=== PATIENT | female | born 1990 | race Caucasian/White ===

== ENCOUNTER 2016-05-08 08:45 | Emergency (ER) | payer OTHER ==
[2016-05-08] MEDS ORDERED: Ondansetron INJ* 2 MG/ML VIAL IV ONE (09:16)
[2016-05-08] MEDS ORDERED: Morphine INJ* 4 MG/ML 1 ML CARPUJECT IV ONE ×2 (09:16→11:40)
[2016-05-08] MEDS ORDERED: NS 0.9% 1000 ML* 2,000 ML IV ONE (09:16)
[2016-05-08 09:40] LABS: Hematocrit 36 % (35-47); Hemoglobin 11.5 g/dl (12.0-16.0); Mean Corpuscular HGB Conc 32 g/dl (31-36); Mean Corpuscular Hemoglobin 27 pg (27-31); Mean Corpuscular Volume 85 fL (80-97); Mean Platelet Volume 8 um3 (7.4-10.4); Red Blood Count 4.21 10^6/ul (4.0-5.4); Red Cell Distribution Width 15 % (10.5-15); White Blood Count 14.8 10^3/ul (3.5-10.8)
--- NOTE | 2016-05-08 10:08 | ED ---
Abdominal Pain/Female - HPI Summary HPI Summary: Patient presents with diffuse abdominal pain that began last night without known cause. The pain is a dull constant with episode of intense pain that subside spontaneously. Her pain is made worse by deep breaths and movement, and made better when her knees are tucked up. She has nausea without vomiting and has had diarrhea vs. loose stool for the past 2 weeks. She denies recent illness , fever, chills, prior abdominal surgeries or food exposure. Her periods are regular and she has a monogamous partner. No vaginal discharge. - History of Current Complaint Chief Complaint: EDAbdPain Stated Complaint: ABD PAIN Time Seen by Provider: 05/08/16 08:58 Hx Obtained From: Patient Hx Last Menstrual Period: July 23, 2015 ?: No Onset/Duration: Gradual Onset Timing: Constant Severity Initially: Moderate Severity Currently: Severe Pain Intensity: 8 Location: Diffuse Radiates: No Character: Sharp, Colicy Aggravating Factor(s): Movement, Deep Breaths Alleviating Factor(s): Other: - bending knees to chest Associated Signs and Symptoms: Positive: Nausea, Diarrhea Allergies/Adverse Reactions: Allergies Allergy/AdvReac Type Severity Reaction Status Date / Time No Known Allergies Allergy Verified 02/04/16 20:43 PMH/Surg Hx/FS Hx/Imm Hx Endocrine/Hematology History: Reports: Hx Thyroid Disease - resolved Denies: Hx Diabetes Cardiovascular History: Denies: Hx Hypertension Respiratory History: Reports: Hx Asthma Denies: Hx Chronic Obstructive Pulmonary Disease (COPD) GI History: Denies: Hx Ulcer - Surgical History Surgery Procedure, Year, and Place: C section 2011 Infectious Disease History: No Infectious Disease History: Denies: Hx Hepatitis, Hx Human Immunodeficiency Virus (HIV), History Other Infectious Disease, Traveled Outside the [place] in Last 30 Days - Family History Known Family History: Positive: None, Cardiac Disease - quadruple bypass surgery - father, Diabetes, Other - thyroid disease - mother Negative: Blood Disorder - pt denies bleeding disorders in family - Social History Occupation: Employed Full-time Lives: With Family Alcohol Use: Occasionally Hx Substance Use: No Substance Use Type: Reports: None Hx Tobacco Use: Yes Smoking Status (MU): Light Every Day Tobacco Smoker Amount Used/How Often: 6-7 cigs Have You Smoked in the Last Year: Yes Cessation Counseling: Patient Advised to Stop Review of Systems Negative: Fever Negative: Chest Pain Negative: Shortness Of Breath Positive: Abdominal Pain, Diarrhea, Nausea. Negative: Vomiting Negative: Headache Psychological: Normal All Other Systems Reviewed And Are Negative: Yes Physical Exam Triage Information Reviewed: Yes Vital Signs On Initial Exam: Initial Vitals Temp Pulse Resp BP Pulse Ox 98.2 F 110 16 105/64 97 05/08/16 08:51 05/08/16 08:51 05/08/16 08:51 05/08/16 08:51 05/08/16 08:51 Vital Signs Reviewed: Yes Appearance: Positive: Well-Appearing, Well-Nourished, Pain Distress Skin: Positive: Warm, Skin Color Reflects Adequate Perfusion, Dry Head/Face: Positive: Normal Head/Face Inspection Eyes: Positive: EOMI, DONATO, Conjunctiva Clear ENT: Positive: Hearing grossly normal Neck: Positive: Supple, Nontender, No Lymphadenopathy Respiratory/Lung Sounds: Positive: Clear to Auscultation, Breath Sounds Present Cardiovascular: Positive: Tachycardia Abdomen Description: Positive: Soft, Guarding. Negative: Nontender - diffuse tenderness to light palpation, CVA Tenderness (R), CVA Tenderness (L) Bowel Sounds: Positive: Present Musculoskeletal: Positive: Strength/ROM Intact. Negative: Edema Left, Edema Right Neurological: Positive: Sensory/Motor Intact, Alert, Oriented to Person Place, Time, NV Bundle Intact Distally Psychiatric: Positive: Affect/Mood Appropriate AVPU Assessment: Alert - [place] Coma Scale Coma Scale Total: 15 Diagnostics - Vital Signs Vital Signs Temp Pulse Resp BP Pulse Ox 05/08/16 09:39 20 05/08/16 09:18 99.9 F 05/08/16 09:07 100 95 05/08/16 09:05 119/68 05/08/16 08:51 98.2 F 110 16 105/64 97 - Laboratory Lab Results: Lab Results 05/08/16 Range/Units 09:25 WBC 14.8 H (3.5-10.8) 10^3/ul RBC 4.21 (4.0-5.4) 10^6/ul Hgb 11.5 L (12.0-16.0) g/dl Hct 36 (35-47) % MCV 85 (80-97) fL MCH 27 (27-31) pg MCHC 32 (31-36) g/dl RDW 15 (10.5-15) % Plt Count 221 (150-450) 10^3/ul MPV 8 (7.4-10.4) um3 Neut % (Auto) 86.7 H (38-83) % Lymph % (Auto) 4.9 L (25-47) % [place] % (Auto) 6.6 (1-9) % Eos % (Auto) 1.4 (0-6) % Baso % (Auto) 0.4 (0-2) % Absolute Neuts (auto) 12.9 H (1.5-7.7) 10^3/ul Absolute Lymphs (auto) 0.7 L (1.0-4.8) 10^3/ul Absolute Monos (auto) 1.0 H (0-0.8) 10^3/ul Absolute Eos (auto) 0.2 (0-0.6) 10^3/ul Absolute Basos (auto) 0.1 (0-0.2) 10^3/ul Absolute Nucleated RBC 0.01 10^3/ul Nucleated RBC % 0.1 Result Diagrams: 05/08/16 09:25 05/08/16 09:25 Lab Statement: Any lab studies that have been ordered have been reviewed, and results considered in the medical decision making process. - CT No standard instances CT Interpretation: Positive (See Comments) CT Interpretation Completed By: Radiologist - colitis Re-Evaluation - Re-Evaluation First Eval Re-Evaluation Time: 10:00 Change: Improved Comment: pain decreased with medication Abdominal Pain Fem Course/Dx - Diagnoses Differential Diagnosis: Positive: Appendicitis, Bowel Obstruction, Constipation , Diverticulitis, Ovarian Cyst, Urinary Tract Infection Provider Diagnoses: Colitis - Provider Notifications Discussed Care Of Patient With: Dr. Chinchilla, ED attending. Discharge - Discharge Plan Condition: Stable Disposition: HOME Prescriptions: Ciprofloxacin TAB* [Cipro Tab*] 500 mg PO BID #13 tab Ibuprofen TAB* [Motrin TAB* 600 MG] 600 mg PO Q6H PRN #60 tab PRN Reason: Pain Metronidazole [Flagyl 500 MG TAB] 500 mg PO TID #20 tab Ondansetron ODT TAB* [Zofran Odt TAB*] 4 mg PO Q6H PRN #20 tab.odt PRN Reason: Nausea traMADol TAB* [Ultram*] 50 mg PO Q6HR PRN #32 tab MDD 8 PRN Reason: Pain Patient Education Materials: Colitis (ED) Forms: *Work Release Referrals: Orlin Alfaro MD [Primary Care Provider] - Additional Instructions: Please take the medication provided until it is completely gone. Use ibuprofen 600 mg every 6 hours with meals to reduce pain and swelling. Add Tramadol for uncontrolled pain. Follow-up with your primary care provider in 3-4 days for evaluation. Drink extra fluids and use the anti-nausea medication as needed. Return to the emergency department if symptoms worsen.
[2016-05-08 10:09] LABS: Albumin 3.8 g/dL (3.2-5.2); BUN/Creatinine Ratio 14.9 (8-20); C Reactive Protein 23.39 mg/L (< 5.00); Calcium 8.5 mg/dL (8.6-10.3); EGFR Non-African American 96.4 (>60); Globulin 2.7 g/dL (2-4); Potassium 4.2 mmol/L (3.5-5.0); Total Bilirubin 0.6 mg/dL (0.2-1.0); Total Protein 6.5 g/dL (6.4-8.9)
[2016-05-08] MEDS ORDERED: Iohexol 300* (CONTRAST) 10 ML SDV IV ONE (10:52)
--- NOTE | 2016-05-08 11:49 | RAD ---
INDICATION: Diffuse abdominal pain and diarrhea. COMPARISON: There are no prior studies available for comparison. TECHNIQUE: A CT scan of the abdomen and pelvis was performed with intravenous and oral contrast following intravenous injection of 93 ml of Omnipaque 300 nonionic contrast. Contiguous axial sections were obtained from the lung bases through the symphysis pubis. Images were reconstructed in the coronal and sagittal planes. FINDINGS: There is mild dependent bilateral lower lobe subsegmental atelectasis. No pleural effusion is present. The liver and spleen are within normal limits in size without significant focal abnormality. No calcified gallstones are seen. The pancreas appears to be within normal limits in size. The kidneys and adrenal glands are normal in size. No hydronephrosis is seen. No significant focal renal abnormality is seen. The aorta is normal in caliber and demonstrates homogeneous contrast opacification. No significant enlarged retroperitoneal lymph nodes are seen. The stomach, small and large bowel appear nondistended. The appendix is within normal limits. There is mild thickening of the wall of the descending and sigmoid colon suggestive of mild colitis. The uterus is anteverted and mildly prominent measuring 10.6 x 6.0 x 4.7 cm in size. There is prominence of the endometrial stripe measuring 1.4 cm in thickness. There is a 2.3 x 1.8 cm right ovarian cyst. There is a small amount of free intraperitoneal fluid in the cul-de-sac. No free intraperitoneal air is seen. No significant focal osseous abnormality is seen. IMPRESSION: 1. MILD THICKENING OF THE WALL OF THE DESCENDING AND SIGMOID COLON SUGGESTIVE OF COLITIS. 2. MILD ENLARGEMENT OF THE UTERUS. 2.3 CM RIGHT OVARIAN CYST AND SMALL AMOUNT OF FREE INTRAPERITONEAL FLUID IN THE CUL-DE-SAC.
[2016-05-08 12:06] VITALS: BP 113/79
[2016-05-08] MEDS ORDERED: Ciprofloxacin 400MG IVPREMIX(* 400 MG/200 ML BAG IVPB ONE (12:15)
[2016-05-08] MEDS ORDERED: metroNIDAZOLE IV 500 MG/100ML* 500 MG/100 ML BAG IVPB ONE (12:16)
[2016-05-08] MEDS ORDERED: Ciprofloxacin TAB* 500 MG PO ONE (13:07)
[2016-05-08] MEDS ORDERED: metroNIDAZOLE TAB* 250 MG PO ONE (13:07)
== END 2016-05-08 13:16 | disposition home or self-care (01) ==
LOC: ED 08:45
DX: K52.9 Noninfective gastroenteritis and colitis, unspecified (principal); F17.210 Nicotine dependence, cigarettes, uncomplicated
CPT/HCPCS: 36415; 74177; 80053; 82150; 83605; 83690; 85025; 86140; 96360; 96374; 96375; 96376; 99283; A9270-GY; J2270; J2405; Q9967

== ENCOUNTER 2017-02-03 17:58 | Emergency (ER) | payer OTHER ==
[2017-02-03 18:13] VITALS: BP 127/59
[2017-02-03] MEDS ORDERED: Sulfamethox/Trimethoprim DS 800/160* TAB PO ONE (18:42)
--- NOTE | 2017-02-03 18:54 | UC ---
Skin Complaint HPI - HPI Summary HPI Summary: 4 DAY H/O TENDER BUMP ON FOREHEAD. GETTING BIGGER. TRIED TO SQUEEZE IT BUT NOTHING CAME OUT. NO FEVER. HAS A H/O RECURRENT AXILLARY ABSCESSES BUT NONE IN SOME YEARS. DOES NOT KNOW IF SHE EVER HAD MRSA. - History of Current Complaint Chief Complaint: UCSkin Time Seen by Provider: 02/03/17 18:25 Stated Complaint: RASH Hx Obtained From: Patient Hx Last Menstrual Period: 02/03/17 Onset/Duration: Gradual Onset, Lasting Days, Still Present Timing: Constant Onset Severity: Moderate Current Severity: Moderate Pain Intensity: 6 Pain Scale Used: 0-10 Numeric Location: Discrete - RIGHT SIDE OF FOREHEAD Character: Pain, Redness, Raised Aggravating Factor(s): Touch Alleviating Factor(s): Nothing Associated Signs & Symptoms: Positive: Tenderness - Allergy/Home Medications Allergies/Adverse Reactions: Allergies Allergy/AdvReac Type Severity Reaction Status Date / Time No Known Allergies Allergy Verified 02/03/17 18:13 Home Medications: Home Medications Fluoxetine HCl [Prozac] 1 tab PO DAILY 02/03/17 [History Confirmed 02/03/17] Oxcarbazepine [Trileptal 150 mg] 1 tab PO DAILY 02/03/17 [History Confirmed 04/21] Review of Systems Constitutional: Negative Skin: Other - TENDER LESION ON FOREHEAD Respiratory: Negative Cardiovascular: Negative Gastrointestinal: Negative All Other Systems Reviewed And Are Negative: Yes PMH/Surg Hx/FS Hx/Imm Hx Psychological History: Depression, Bipolar Disorder - Surgical History Surgical History: Yes Surgery Procedure, Year, and Place: C section 2011 - Family History Known Family History: Positive: Cardiac Disease - quadruple bypass surgery - father, Hypertension, Diabetes, Other - thyroid disease - mother Negative: Blood Disorder - pt denies bleeding disorders in family - Social History Alcohol Use: Occasionally Substance Use Type: None Smoking Status (MU): Light Every Day Tobacco Smoker Type: Cigarettes Amount Used/How Often: 1/2PPD Have You Smoked in the Last Year: Yes Household Exposure Type: Cigarettes - Immunization History Most Recent Influenza Vaccination: unknown Physical Exam Triage Information Reviewed: Yes Appearance: Well-Appearing, No Pain Distress, Well-Nourished Vital Signs: Initial Vital Signs Temp 99.0 F 02/03/17 18:08 Pulse 72 02/03/17 18:08 Resp 16 02/03/17 18:08 BP 127/59 02/03/17 18:08 Pulse Ox 100 02/03/17 18:08 Vital Signs Reviewed: Yes Eyes: Positive: Conjunctiva Clear ENT: Positive: Hearing grossly normal Neck: Positive: Supple Respiratory: Positive: No respiratory distress, No accessory muscle use Cardiovascular: Positive: Pulses Normal Abdomen Description: Positive: Soft Musculoskeletal: Positive: No Edema Neurological: Positive: Alert Psychological: Positive: Age Appropriate Behavior Skin: Positive: Other - 1CM TENDER, RAISED, ERYTHEMATOUS LESION RIGHT SIDE OF FOREHEAD WITH CENTRAL SCAB. Course/Dx - Diagnoses Provider Diagnoses: ABSCESS FOREHEAD Discharge - Discharge Plan Condition: Stable Disposition: HOME Prescriptions: Sulfamethox/Trimethoprim DS* [Bactrim DS 800/160 TAB*] 1 tab PO BID #13 tab Patient Education Materials: Abscess (ED) Referrals: Orlin Alfaro MD [Medical Doctor] - If Needed Additional Instructions: WARM/HOT COMPRESSES AT LEAST 4 TIMES DAILY SPECIMEN SENT FOR CULTURE TAKE FULL COURSE OF ANTIBIOTICS. CALL IN 3-4 DAYS FOR RESULTS. SEEK FOLLOW-UP IF SYMPTOMS NOT IMPROVING EXPECTED WITH TREATMENT.
--- NOTE | 2017-02-06 14:55 | UC ---
Progress - Progress Note Progress Note: + MRSA Pt on Bactrim Pt with + sensitivity no change Ray 02/06/2017
== END 2017-02-03 18:54 | disposition home or self-care (01) ==
LOC: UCEAST 17:58
DX: L02.01 Cutaneous abscess of face (principal); B95.62 Methicillin resistant Staphylococcus aureus infection as the cause of diseases classified elsewhere; F31.9 Bipolar disorder, unspecified; F17.210 Nicotine dependence, cigarettes, uncomplicated
CPT/HCPCS: 87070; 87077; 87186; 87205; 99212; A9270-GY; G0463

== ENCOUNTER 2018-09-29 19:38 | Emergency (ER) | payer BC, OTHER ==
[2018-09-29] MEDS ORDERED: Levofloxacin TAB* 250 MG PO ONE (21:08)
[2018-09-29] MEDS ORDERED: Clindamycin CAP* 150 MG PO ONE (21:08)
[2018-09-29] MEDS ORDERED: Tetan/Diph/Pertus SYR(Tdap)* 0.5 ML SYR(BOOSTRIX) use SYR IM ONE (21:08)
--- NOTE | 2018-09-29 21:10 | ED ---
Skin Complaint - HPI Summary HPI Summary: This patient is a 27 year old F presenting to [facility] accompanied by her with a chief complaint of A cut on her R foot while [place] which happened at 1700 09/28/18. She states that the pain is rated a 4/10 in severity. She denies any swelling. She stated that she cant walk on her R foot due to the pain. She states no alleviating factors. Pt denies any fever, chills, erythema of eyes, sore throat, CP, SOB, cough, abdominal pain, N/V, dysuria, hematuria, myalgia, edema, rash, or dizziness. She stated that she was unsure of when her last tetanus shot was. - History of Current Complaint Chief Complaint: EDExtremityLower Time Seen by Provider: 09/29/18 20:51 Stated Complaint: RIGHT FOOT LACERATION/INFECTION PER PT Hx Obtained From: Patient Onset/Duration: Started Days Ago - 1, Traumatic, Still Present Skin Exposure Onset/Duration: Days Ago - 1 Timing: Constant Onset Severity: Moderate Current Severity: Moderate Pain Intensity: 4 Pain Scale Used: 0-10 Numeric Skin Location: Foot - 4 Character: Pain Aggravating Symptom(s): Touch, Other: - standing Alleviating Symptom(s): Nothing Associated Signs & Symptoms: Negative - fever, chills, erythema of eyes, sore throat, CP, SOB, cough, abdominal pain, N/V, dysuria, hematuria, myalgia, edema , rash, or dizziness. Related History: Trauma - stepped on a rock while swimming [place] a [place] - Allergy/Home Medications Allergies/Adverse Reactions: Allergies Allergy/AdvReac Type Severity Reaction Status Date / Time No Known Allergies Allergy Verified 09/29/18 19:42 PMH/Surg Hx/FS Hx/Imm Hx Previously Healthy: Yes Endocrine/Hematology History: Reports: Hx Thyroid Disease - resolved Denies: Hx Diabetes Cardiovascular History: Denies: Hx Hypertension Respiratory History: Reports: Hx Asthma Denies: Hx Chronic Obstructive Pulmonary Disease (COPD) GI History: Denies: Hx Ulcer History: Denies: Hx Dialysis, Hx Renal Disease - Surgical History Surgery Procedure, Year, and Place: C section 2011 Infectious Disease History: No Infectious Disease History: Denies: Hx Hepatitis, Hx Human Immunodeficiency Virus (HIV), History Other Infectious Disease, Traveled Outside the [place] in Last 30 Days - Family History Known Family History: Positive: Cardiac Disease - quadruple bypass surgery - father, Hypertension, Diabetes, Other - thyroid disease - mother Negative: Blood Disorder - pt denies bleeding disorders in family - Social History Occupation: Employed Full-time Lives: With Family Alcohol Use: Occasionally Hx Substance Use: No Substance Use Type: Reports: None Hx Tobacco Use: Yes Smoking Status (MU): Light Every Day Tobacco Smoker Type: Cigarettes Amount Used/How Often: 1/2PPD Have You Smoked in the Last Year: Yes Review of Systems Negative: Fever, Skin Diaphoresis Negative: Erythema Negative: Sore Throat Negative: Chest Pain Negative: Shortness Of Breath Negative: Abdominal Pain, Vomiting, Nausea Negative: dysuria, hematuria Positive: Myalgia - R foot pain. Negative: Edema Positive: Other - Small laceration to her R foot. Negative: Rash Neurological: Negative - dizziness Negative: Headache All Other Systems Reviewed And Are Negative: Yes Physical Exam - Summary Physical Exam Summary: VITAL SIGNS: Reviewed. GENERAL: Patient is a well-developed and nourished female who is lying comfortable in the stretcher. Patient is not in any acute respiratory distress. HEAD AND FACE: No signs of trauma. No ecchymosis, hematomas or skull depressions. No sinus tenderness. EYES: PERRLA, EOMI x 2, No injected conjunctiva, no nystagmus. EARS: Hearing grossly intact. Ear canals and tympanic membranes are within normal limits. MOUTH: Oropharynx within normal limits. NECK: Supple, trachea is midline, no adenopathy, no JVD, no carotid bruit, no c- spine tenderness, neck with full ROM CHEST: Symmetric, no tenderness at palpation LUNGS: Clear to auscultation bilaterally. No wheezing or crackles. CVS: Regular rate and rhythm, S1 and S2 present, no murmurs or gallops appreciated. ABDOMEN: Soft, non-tender. No signs of distention. No rebound no guarding, and no masses palpated. Bowel sounds are normal. EXTREMITIES: FROM in all major joints, no edema, no cyanosis or clubbing. NEURO: Alert and oriented x 3. No acute neurological deficits. Speech is normal and follows commands. SKIN: Dry and warm. 1.5 cm superficial laceration with surrounding tenderness without erythema to the Sole of the R foot just proximal to the 4th web space Triage Information Reviewed: Yes Vital Signs On Initial Exam: Initial Vitals Temp Pulse Resp BP Pulse Ox 97.4 F 91 15 132/88 97 09/29/18 19:41 09/29/18 19:41 09/29/18 19:41 09/29/18 19:41 09/29/18 19:41 Vital Signs Reviewed: Yes Diagnostics - Vital Signs Vital Signs Temp Pulse Resp BP Pulse Ox 09/29/18 19:41 97.4 F 91 15 132/88 97 - Laboratory Lab Statement: Any lab studies that have been ordered have been reviewed, and results considered in the medical decision making process. Course/Dx - Course Course Of Treatment: This pt is a 27 y/o F presenting to [facility] with a CC of a R foot laceraion she sustained while [place] at 1500 09/28/18. Upon her PE she is found to have a 1.5 cm superficial laceration with surrounding tenderness without erythema to the Sole of the R foot just proximal to the 4th web space. The laceration will not be sutured due to it being older than 24 hours to avoid the risk of increasing a possible infection. She will be discharged home with a Dx of a R foot laceration. She will be prescribed ABX and given a work note excusing her from work tomorrow 09/30/18 and permitting her to wear open toed shoes for the next 10 days. - Diagnoses Provider Diagnoses: Laceration of right foot Is Visit Related: No Discharge - Sign-Out/Discharge Documenting (check all that apply): Patient Departure - discharge Patient Received Moderate/Deep Sedation with Procedure: No - Discharge Plan Condition: Stable Disposition: HOME Patient Education Materials: Laceration (ED) Forms: *Work Release Referrals: [facility] [Outside] - 2 Days Additional Instructions: Please take the prescribed medications as directed and return to the emergency department for any new or worsening symptoms. Follow up with [facility] in 2-3 days. Wear opened toed shoes for the next 10 days including while at work. - Attestation Statements Document Initiated by Scribe: Yes Documenting Scribe: Arnoldo Wei Provider For Whom Scribe is Documenting (Include Credential): Kirsten Calvo MD Scribe Attestation: Arnoldo Ramon, scribed for Kirsten Calvo MD on 09/29/18 at 2117. Status of Scribe Document: Ready
[2018-09-29 21:51] VITALS: BP 134/79
== END 2018-09-29 21:49 | disposition home or self-care (01) ==
LOC: ED 19:38
DX: S91.311A Laceration without foreign body, right foot, initial encounter (principal); W45.8XXA Other foreign body or object entering through skin, initial encounter; Y93.11 Activity, swimming; Y92.828 Other wilderness area as the place of occurrence of the external cause; Z23 Encounter for immunization; F17.210 Nicotine dependence, cigarettes, uncomplicated
CPT/HCPCS: 90471; 90715; 99282; A9270-GY

== ENCOUNTER 2023-12-10 05:39 | Inpatient (IN) ==
[2023-12-10] MEDS ORDERED: Morphine PF AMP (0.5MG/ML) 5 MG/10 ML AMP ONE (06:53)
[2023-12-10] MEDS ORDERED: fentaNYL 100 mcg/2 ml 50 MCG/ML VIAL ONE (06:54)
[2023-12-10 06:59] LABS: ABS Eosinophils 0.1 10^3/uL (0.0-0.5); ABS Lymphocytes 1.5 10^3/uL (1.0-4.8); ABS Monocytes 0.5 10^3/uL (0.0-0.9); ABS Neutrophils 4.8 10^3/uL (1.5-7.6); Eosinophil % 1.3 %; Hematocrit 39.4 % (35-45); Hemoglobin 13.9 g/dL (11.5-14.3); Lymphocyte % 21.2 %; Mean Corpuscular Hemoglobin 32.9 pg (27-33); Mean Corpuscular Hgb Conc 35.4 g/dL (31-36); Nucleated Red Blood Cells % 0.1 %/100WBC (0.0-0.8); Platelet Count 206 10^3/uL (150-450); Red Blood Count 4.24 10^6/uL (3.63-4.92); White Blood Count 6.9 10^3/uL (3.8-11.8)
[2023-12-10] MEDS ORDERED: Sodium Citrate/Citric Acid LIQ 15 ML UDC ONE (07:44)
[2023-12-10] MEDS: Buffered Lidocaine 1% SYRIN 1 ml INTRADERM ONE (07:58)
[2023-12-10] MEDS: Lactated Ringers 1000 ml BAG 1,000 ML IV ONE (08:04)
[2023-12-10] MEDS: Sodium Citrate/Citric Acid LIQ 15 ML UDC PO ONE ×2 (08:04→08:42)
[2023-12-10] MEDS: ceFOXitin 2 GM IVPREMIX 2 GM/50 ML BAG IVPB ONE (08:04)
[2023-12-10] MEDS ORDERED: Phenylephrine IV 10 MG/ML 1 ml VIAL ONE (08:33)
[2023-12-10] MEDS ORDERED: Oxytocin 10 UNITS/ML 1 ML VIAL ONE ×2 (08:42→08:50)
[2023-12-10] MEDS: Lactated Ringers 1000 ml BAG 1,000 ML IV SCH (08:42)
[2023-12-10] MEDS ORDERED: Atropine 1 MG/ML INJ 1 ML VIAL ONE (09:12)
[2023-12-10 09:30] LABS: Urine Benzodiazepine Screen None Detected (None Detect); Urine Cannabinoids Screen Presumptive Positive (None Detect); Urine Opiates Screen None Detected (None Detect)
[2023-12-10] MEDS ORDERED: Witch Hazel PAD JAR TOPICAL PRN ×2 (09:33→17:46)
[2023-12-10] MEDS ORDERED: Dibucaine 1% OINT 28.35 GM TUBE PR PRN (09:33)
[2023-12-10] MEDS ORDERED: Glycerin ADULT 2.4 gm SUPP PR PRN ×2 (09:33→17:46)
[2023-12-10] MEDS ORDERED: Naloxone 0.4 mg VIAL 0.4 mg/ml 1 ml VIAL IV PRN (09:40)
[2023-12-10] MEDS ORDERED: Acetaminophen IV 1 GM/100ML 1,000 MG/100 ML BAG IV PRN (09:41)
[2023-12-10] MEDS ORDERED: Naloxone 0.4 mg VIAL 0.4 mg/ml 1 ml VIAL IV PUSH PRN (09:41)
[2023-12-10 09:48] LABS: Urine Appearance Clear; Urine Bilirubin Negative (Negative); Urine Blood Negative (Negative); Urine Color Yellow; Urine Glucose Negative (Negative); Urine Ketones Negative (Negative); Urine Nitrite Negative (Negative); Urine Protein Trace (Negative); Urine Specific Gravity 1.022 (1.002-1.030); Urine Urobilinogen Negative (Negative); Urine pH 6.5 (5.0-8.0)
[2023-12-10] MEDS ORDERED: Lactated Ringers 1000 ml BAG 1,000 ML IV SCH ×2 (10:00→18:00)
[2023-12-10] MEDS: Oxytocin in LR 20,000 MILLI.UNIT/1,000 ML BAG IV ONE (14:27)
[2023-12-10] MEDS ORDERED: Polyethylene Glycol 3350 17 GM PACKET PO PRN (17:46)
[2023-12-11 06:53] LABS: ABS Eosinophils 0.1 10^3/uL (0.0-0.5); ABS Monocytes 0.5 10^3/uL (0.0-0.9); ABS Neutrophils 6.8 10^3/uL (1.5-7.6); Eosinophil % 1.5 %; Hematocrit 31.1 % (35-45); Hemoglobin 10.9 g/dL (11.5-14.3); Lymphocyte % 11.4 %; Mean Corpuscular Hemoglobin 33.1 pg (27-33); Mean Corpuscular Hgb Conc 35.2 g/dL (31-36); Mean Corpuscular Volume 94.2 fL (80-97); Mean Platelet Volume 8.3 fL (7.5-11.2); Platelet Count 141 10^3/uL (150-450); Red Cell Distribution Width 13.3 % (12-17); White Blood Count 8.5 10^3/uL (3.8-11.8)
[2023-12-11] MEDS: Polyethylene Glycol 3350 17 GM PACKET PO PRN (09:19)
[2023-12-13 08:47] VITALS: BP 111/63
== END 2023-12-13 14:29 | disposition home or self-care (01) | DRG 540 ==
LOC: MCHOB 05:39
PROVIDERS: ADMIT Obstetrics & Gynecology; ATTEND Obstetrics & Gynecology